=== PATIENT | female | born 1945 | race Caucasian/White ===

== ENCOUNTER 2017-10-12 10:59 | Emergency (ER) | payer MEDICARE ==
[~2017-10-12] VITALS: Ht 157.5 cm; Wt 94.0 kg
[~2017-10-12 10:59] MED LIST: ALBU6.7H INH; ALPR.25 PO; ASPI1TAB7 PO; CALC600T55 PO; CARD240C6 PO; CYMB30CA PO; FLUT50SP EACH NARE; HYZA100T6 PO; LEVO75TA3 PO; LIOT5 PO; LORA10TA PO; NEUR600T PO; PREM0.3T2 PO; PRIL40CA PO; RANI150T PO; TRAM50TA PO; TRAZ150T2 PO
[2017-10-12 11:10] VITALS: BP 229/97; PULSE 70; RESP 16; TEMP 97.8; O2SAT 98
[2017-10-12] MEDS ORDERED: GABA600T PO (11:44)
[2017-10-12] MEDS ORDERED: LIOT5TAB3 PO (11:44)
[2017-10-12] MEDS ORDERED: CYMB30CA PO (11:44)
[2017-10-12] MEDS ORDERED: IRBE300T13 PO (11:44)
[2017-10-12] MEDS ORDERED: OMEP40CA2 (11:45)
[2017-10-12] MEDS ORDERED: ALPR0.25 PO (11:45)
[2017-10-12] MEDS ORDERED: CLAR10CA3 PO (11:45)
[2017-10-12] MEDS ORDERED: PEMB1INJ IV-CENTRAL (11:45)
[2017-10-12] MEDS ORDERED: FURO20TA PO (11:45)
[2017-10-12] MEDS ORDERED: LEVO88TA2 PO (11:45)
[2017-10-12] MEDS ORDERED: AMLO5 PO (11:45)
[2017-10-12] MEDS ORDERED: TRAZ1TAB14 PO (11:45)
[2017-10-12] MEDS ORDERED: oxyCODONE/ACETAMINOPHEN 10 MG/325 MG TAB PO ONE (12:00)
--- NOTE | 2017-10-12 12:03 | PD ---
HPI Chief Complaint: Fall Time Seen by Provider: 11:34 Travel History International Travel<30 days: No Contact w/Intl Traveler<30days: No Traveled to known affect area: No History of Present Illness HPI The patient is a 71-year-old female who presents to the emergency department for headache, facial contusion, and chest congestion. The patient has a history of ovarian carcinoma, is currently being treated with Keytruda injection every 3 weeks, she is followed by her oncologist, Dr. Alejandra, in [place], [place]. The patient notes for the last 2-3 weeks she has had some chest congestion with a productive cough producing yellow sputum. She denies any fever or chest pain. The patient was sleeping on the couch earlier today when she rolled off the couch, landing on a tile floor. The patient states she suffered bruising to the right periorbital area as well as some nasal bridge swelling and bleeding from both nostrils. She does complain of a frontal headache, denies any associated neck pain. She denies any weakness of the upper or lower extremities. Symptoms are moderate. PFSH Past Medical History Hx Anticoagulant Therapy: No Asthma: Yes Anxiety: Yes Depression: Yes Cancer: Yes (OVARIAN) Cardiovascular Problems: Yes (htn on meds) Chemotherapy: Yes (11/11/15) Fibromyalgia: Yes GERD: Yes Hypertension: Yes Respiratory: Yes (ASTHMA) Immunizations Current: Yes Radiation Therapy: No Thyroid Disease: Yes (GRAVES) Influenza Vaccination: Yes ?: Not Past Surgical History Abdominal Surgery: Yes (OVARIAN CANCER WITH COLON RESECTION X 2) Appendectomy: Yes Cholecystectomy: Yes Hysterectomy: Yes Tonsillectomy: Yes Other Surgery: Yes (BILATERAL BREAST BIOPSIES X 3-BENIGN.) Social History Alcohol Use: No Tobacco Use: No (FORMER) Substance Use: No Allergies-Medications (Allergen,Severity, Reaction): Coded Allergies: acetaminophen (Unverified Allergy, Severe, VOMITING, 10/12/17) codeine (Unverified Allergy, Severe, UNKNOWN, 10/12/17) meperidine (Unverified Allergy, Severe, VOMITING, 10/12/17) oxycodone (Unverified Allergy, Severe, VOMITING, 10/12/17) penicillin G (Unverified Allergy, Severe, HIVES, 10/12/17) Reported Meds & Prescriptions Reported Meds & Active Scripts Active Reported Keytruda Inj (Pembrolizumab) 100 Mg/4 Ml (25 Mg/Ml) Inj 1 Injection IV-CENTRAL Q 3WEEKS Alprazolam 0.25 Mg Tab 0.25 Mg PO HS PRN Trazodone (Trazodone HCl) 150 Mg Tablet 150 Mg PO HS Omeprazole 40 Mg Cap 40 Mg BID Furosemide 20 Mg Tab 20 Mg PO DAILY Claritin (Loratadine) 10 Mg Cap 10 Mg PO DAILY Levothyroxine (Levothyroxine Sodium) 88 Mcg Tab 88 Mcg PO DAILY Norvasc (Amlodipine Besylate) 5 Mg Tab 5 Mg PO BID Cymbalta DR (Duloxetine HCl) 30 Mg Capdr 30 Mg PO BID Gabapentin 600 Mg Tab 600 Mg PO TID Irbesartan-Hydrochlorothiazide 300-12.5 Mg Tab 1 Tab PO DAILY Liothyronine (Liothyronine Sodium) 5 Mcg Tab 5 Mcg PO DAILY Review of Systems Except as stated in HPI: all other systems reviewed are Neg Eyes: No: Diploplia, Blurred Vision HENT: Positive: Headaches, Other (As noted in the history of present illness), No: Lightheadedness Cardiovascular: No: Chest Pain or Discomfort Respiratory: Positive: Cough Gastrointestinal: No: Nausea, Vomiting, Abdominal Pain Musculoskeletal: Positive: Pain (Pain secondary to chemotherapy diffusely, not acute), No: Weakness Neurologic: Positive: Headache, No: Change in Mentation, Paresthesia, Sensory Disturbance Physical Exam Narrative GENERAL: Awake, alert, pleasant 71-year-old female who appears her stated age and is in no acute respiratory distress. SKIN: Focused skin assessment warm/dry. HEAD: Right periorbital ecchymosis. Swelling of the nasal bridge. Hematoma over the right frontal forehead. EYES: Pupils equal and round. 3 mm bilateral and reactive. EOMs are intact. Patient is able to see fingers at a distance of 2 feet without difficulty. ENT: Nasal bridge swelling. Dry blood in both nostrils. Es pink and moist. NECK: Trachea midline. No JVD. No tenderness over the midline of the cervical vertebrae. Patient is able flex, extend, and rotate without difficulty. CARDIOVASCULAR: Regular rate and rhythm. No murmur appreciated. RESPIRATORY: No accessory muscle use. Clear to auscultation. Breath sounds equal bilaterally. No audible wheezes, rales, or rhonchi. MUSCULOSKELETAL: No obvious deformities. No clubbing. No cyanosis. No edema. NEUROLOGICAL: Awake and alert. No obvious cranial nerve deficits. Motor grossly within normal limits. Normal speech. Nonfocal. Oriented 4. Follows commands without difficulty. PSYCHIATRIC: Appropriate mood and affect; insight and judgment normal. Data Data Last Documented VS Vital Signs Date Time Temp Pulse Resp B/P (MAP) Pulse Ox O2 Delivery O2 Flow Rate FiO2 10/12/17 11:10 97.8 70 16 229/97 (141) [address] Facial Bones W/O Iv Cont (10/12/17 ) Ct Brain W/O Iv Contrast(Rout) (10/12/17 ) Chest, Single Ap (10/12/17 ) Oxycodone-Acetamin 10-325 Mg (Percocet 1 (10/12/17 12:00) MDM Medical Decision Making Medical Screen Exam Complete: Yes Emergency Medical Condition: Yes Medical Record Reviewed: Yes Interpretation(s) Last Impressions Maxillofacial CT 10/12/17 0000 Signed Impressions: Service Date/Time: September 11:57 - CONCLUSION: 1. Right nasal fracture. 2. Facial soft tissue swelling. Carter Barclay MD Head CT 10/12/17 0000 Signed Impressions: Service Date/Time: September 11:57 - CONCLUSION: 1. No acute intracranial abnormality. Carter Barclay MD Chest X-Ray 10/12/17 0000 Signed Impressions: Service Date/Time: September 11:46 - CONCLUSION: 1. Left basilar subsegmental atelectasis. 2. Tiny pleural effusions. Carter Barclay MD Differential Diagnosis Differential diagnosis includes closed head injury, intracranial hemorrhage, hematoma, contusion, orbital wall fracture, nasal fracture, epistaxis, pneumonia , bronchitis, pleural effusion. Narrative Course Chest x-ray was obtained. CT of the brain and facial bones was obtained. The patient states she has oxycodone at home for pain, therefore, was administered Percocet [address] of the brain reveals no intracranial hemorrhage. CT the facial bones reveals nasal fracture, soft tissue swelling, otherwise unremarkable. Chest x-ray reveals tiny pleural effusions bilaterally. I had a discussion with the patient, she has a history of tiny pleural effusions. Ice to the face and nose as needed. The patient has pain medications at home and states she takes Percocet, has no allergy to oxycodone or acetaminophen. Therefore, those allergies were removed. She will be provided a copy of her CT results at discharge. Return if symptoms worsen or progress. Diagnosis Primary Impression: Nasal fracture Qualified Codes: S02.2XXA - Fracture of nasal bones, initial encounter for closed fracture Additional Impressions: Closed head injury Qualified Codes: S09.90XA - Unspecified injury of head, initial encounter Bronchitis Patient Instructions: General Instructions Additional Instructions: Medications as directed. Please provide the patient a copy of her CT results and x-ray results at discharge. 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 Return if symptoms worsen or progress. Apply ice to the right eye and nose. Sinus precautions. Med/Other Pt SpecificInfo: Prescription(s) given Scripts Azithromycin (Zithromax Z-Alberto) 250 Mg Dspk 250 MG PO DIRECTED for Infection, #1 DSPK 0 Refills 500 MG (2 tabs) day 1, then 1 tab days 2-5. Prov: Alfredo Diehl MD 10/12/17 Disposition: DISCHARGE HOME Condition: Stable Alfredo Diehl MD Oct 12, 2017 12:03
--- NOTE | 2017-10-12 12:04 | RADRPT ---
EXAM DATE/TIME: 10/12/2017 11:46 [facility] COMPARISON: CHEST SINGLE AP, November 15, 2015, 14:10. INDICATIONS : Cough for 3 weeks; fall this morning. MEDICAL HISTORY : Hypertension. Asthma. Ovarian cancer. Graves disease. SURGICAL HISTORY : Appendectomy. Cholecystectomy. Hysterectomy. ENCOUNTER: Initial ACUITY: 3 weeks PAIN SCORE: 0/10 LOCATION: Bilateral chest FINDINGS: A single view of the chest demonstrates left basilar subsegmental atelectasis. Blunting of both costo phrenic angles. Heart normal in size. Left-sided port again seen. The cardiomediastinal contours are unremarkable. Osseous structures are intact. CONCLUSION: 1. Left basilar subsegmental atelectasis. 2. Tiny pleural effusions. Carter Barclay MD on October 12, 2017 at 12:02 Board Certified Radiologist. This report was verified electronically.
--- NOTE | 2017-10-12 12:13 | RADRPT ---
EXAM DATE/TIME: 10/12/2017 11:57 [facility] COMPARISON: No previous studies available for comparison. INDICATIONS : Trauma. Fall. Right forehead and nose pain. RADIATION DOSE: 59.46 CTDIvol (mGy) MEDICAL HISTORY : Gastroesophageal reflux disease. Hypertension. Graves disease. Ovarian cancer. SURGICAL HISTORY : Appendectomy. Colon resection.Cholecystectomy.Hysterectomy. ENCOUNTER: Initial ACUITY: 1 day PAIN SCALE: 8/10 LOCATION: Right cranial TECHNIQUE: Multiple contiguous axial images were obtained of the head. Using automated exposure control and adj ustment of the mA and/or kV according to patient size, radiation dose was kept as low as reasonably a chievable to obtain optimal diagnostic quality images. DICOM format image data is available electro nically for review and comparison. FINDINGS: CEREBRUM: Cerebral atrophy. The ventricles are normal for age. No evidence of midline shift, mass lesion, hemo rrhage or acute infarction. No extra-axial fluid collections are seen. POSTERIOR FOSSA: The cerebellum and brainstem are intact. The 4th ventricle is midline. The cerebellopontine angle i s unremarkable. EXTRACRANIAL: The visualized portion of the orbits is intact. Right forehead contusion. SKULL: The calvaria is intact. No evidence of skull fracture. CONCLUSION: 1. No acute intracranial abnormality. Carter Barclay MD on October 12, 2017 at 12:11 Board Certified Radiologist. This report was verified electronically.
--- NOTE | 2017-10-12 12:17 | RADRPT ---
EXAM DATE/TIME: 10/12/2017 11:57 [facility] COMPARISON: No previous studies available for comparison. INDICATIONS : Trauma. Fall. Right forehead and nose pain. RADIATION DOSE: 34.84 CTDIvol (mGy) MEDICAL HISTORY : Gastroesophageal reflux disease. Hypertension. Graves disease. Ovarian cancer. SURGICAL HISTORY : Appendectomy. Colon resection.Cholecystectomy.Hysterectomy. ENCOUNTER: Initial ACUITY: 1 day PAIN SCORE: 8/10 LOCATION: facial TECHNIQUE: Volumetric scanning of the facial bones was performed. Using automated exposure control and adjustme nt of the mA and/or kV according to patient size, radiation dose was kept as low as reasonably achiev able to obtain optimal diagnostic quality images. DICOM format image data is available electronicall y for review and comparison. FINDINGS: ORBITS: The orbital and infraorbital osseous structures are intact. The retroconal structures have a normal configuration. No radiopaque foreign bodies are seen. NASAL BONE: The nasal bone and maxillary spine are intact ZYGOMATIC ARCHES: Symmetric without evidence of fracture. SINUSES: Minimal scattered sinus disease probably within the maxillary sinuses. No air-fluid levels seen. NASAL CAVITY: Right nasal fracture. The lacrimal ducts are intact. SOFT TISSUES: No radiopaque foreign bodies seen. Right-sided facial soft-tissue swelling is seen. INTRACRANIAL: No intracranial air seen. CRIBIFORM PLATE: Grossly intact. CONCLUSION: 1. Right nasal fracture. 2. Facial soft tissue swelling. Carter Barclay MD on October 12, 2017 at 12:14 Board Certified Radiologist. This report was verified electronically.
[2017-10-12] MEDS ORDERED: ZITHTAB PO (13:05)
== END 2017-10-12 13:42 | disposition home or self-care (01) ==
LOC: PHEFT 10:59
DX: S02.2XXA Fracture of nasal bones, initial encounter for closed fracture (principal); S09.90XA Unspecified injury of head, initial encounter; J40 Bronchitis, not specified as acute or chronic; J45.909 Unspecified asthma, uncomplicated; R05 Cough; I10 Essential (primary) hypertension; W08.XXXA Fall from other furniture, initial encounter; Y93.84 Activity, sleeping; Y92.008 Other place in unspecified non-institutional (private) residence as the place of occurrence of the external cause; Z85.43 Personal history of malignant neoplasm of ovary
CPT/HCPCS: 70450; 70486; 71045; 99285

== ENCOUNTER 2018-04-11 00:10 | Observation (INO) ==
--- NOTE | 2018-04-11 01:04 | ED ---
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 She had her blood drawn earlier today and was called at home to inform her that her hemoglobin was 6.8 and that she should come to the emergency department immediately for transfusion. She reports that she has been feeling very fatigued and tires easily for the past several weeks. She denies any sort of bleeding. No bruising on her body. No rash. She denies hematemesis, hematochezia, hemoptysis and bleeding from enterocutaneous fistula. She had pelvic cancer surgery March 19 of this year. 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 while she is being treated with TPN through a right upper extremity PICC line. She denies exertional chest pain, exertional dyspnea, and syncope. She is not currently receiving cytotoxic chemotherapy. She was previously receiving Keytruda but this is been discontinued as well. She has not received any radiation therapy. Related Data Home Medications Medication Instructions Recorded Confirmed alprazolam 0.25 mg PO DAILY 04/11/18 04/11/18 amlodipine [Norvasc] 5 mg PO BID 04/11/18 04/11/18 aspirin [Aspir-81] 81 mg PO DAILY 04/11/18 04/11/18 cholecalciferol (vitamin D3) 5,000 unit PO DAILY 04/11/18 04/11/18 [Vitamin D3] duloxetine [Cymbalta] 30 mg PO BID 04/11/18 04/11/18 furosemide [Lasix] 20 mg PO DAILY 04/11/18 04/11/18 gabapentin 600 mg PO TID 04/11/18 04/11/18 hydralazine 100 mg PO DAILY 04/11/18 04/11/18 irbesartan-hydrochlorothiazide 1 tab PO DAILY 04/11/18 04/11/18 levothyroxine 75 mcg PO DAILY 04/11/18 04/11/18 liothyronine 5 mcg PO DAILY 04/11/18 04/11/18 loratadine 10 mg PO DAILY 04/11/18 04/11/18 omeprazole 40 mg PO DAILY 04/11/18 04/11/18 trazodone 150 mg PO DAILY 04/11/18 04/11/18 Allergies Allergy/AdvReac Type Severity Reaction Status Date / Time codeine Allergy Severe UNKNOWN Unverified 10/12/17 11:14 meperidine Allergy Severe VOMITING Unverified 10/12/17 11:14 penicillin G Allergy Severe HIVES Unverified 10/12/17 11:14 Review of Systems ROS: all other systems reviewed are negative [facility] Medical History Medical History Enterocutaneous fistula (Acute) Hx of essential hypertension (Acute) Hx of gastroesophageal reflux (GERD) (Acute) Hx of ovarian cancer (Acute) Hx of thyroid disease (Acute) Surgical History Surgical History Hx of appendectomy (Acute) Hx of cholecystectomy (Acute) Hx of colectomy (Acute) Hx of tonsillectomy (Acute) Hx of total hysterectomy with removal of both tubes and ovaries (Acute) Social History Social History Substance History: No History of Abuse Second Hand Smoke Exposure: No Smoking Status: Never smoker How Often Do You Have a Drink Containing Alcohol: Never Recent Travel in [place] within the Last 8 Weeks: No Recent Out of Country Travel within the Last 8 Weeks: No Immunization History Tetanus Immunization: Unsure Hx Influenza Vaccine This Season: Yes Exam Narrative Exam Narrative: GENERAL: 72-year-old woman who appears chronically ill lying on exam stretcher in no apparent distress. When she is not talking it appears that she nods off to sleep. Her is seated in a chair next to the bed. SKIN: Focused skin assessment warm/dry. Puffy edema of bilateral upper extremities left arm worse than right. 2+ pitting edema bilateral lower extremities. HEAD: Atraumatic. Normocephalic. EYES: Pupils equal and round. No scleral icterus. No injection or drainage. ENT: No nasal bleeding or discharge. Mucous membranes pink and moist. NECK: Trachea midline. No JVD. CARDIOVASCULAR: Regular rate and rhythm. No murmur appreciated. RESPIRATORY: No accessory muscle use. Clear to auscultation. Breath sounds equal bilaterally. GASTROINTESTINAL: Abdomen soft, mildly tender around surgical incisions. Enteric cutaneous fistula and midline chylous fluid, surgical incision is clean dry and intact and healing well, nondistended. Hepatic and splenic margins not palpable. MUSCULOSKELETAL: No obvious deformities. No clubbing. No cyanosis. No edema. NEUROLOGICAL: Awake and alert. No obvious cranial nerve deficits. Motor grossly within normal limits. Normal speech. PSYCHIATRIC: Appropriate mood and affect; insight and judgment normal. Course Consultations Consultation #1: Spoke with Dr. Malone regarding patient's anemia and need for transfusion. She will admit patient for care to [facility]. 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 There is no evidence of cardiac ischemia or heart failure. She has complaint of fatigue, which may be related to her chronic health conditions but is likely contributed to by anemia. Will recheck hemoglobin and order anemia labs. Medical Screen Exam Complete: Yes Emergency Medical Condition: Yes Medical Records Medical records reviewed: Yes I reviewed the patient's medical records. Lab Data Lab results reviewed: Yes I reviewed the patient's lab results. Lab results narrative: Normocytic anemia. Result diagrams: 04/11/18 01:10 04/11/18 01:10 Lab Results 04/11/18 04/11/18 04/11/18 Range/Units 01:10 01:10 02:03 CBC w Diff Auto diff final WBC 6.2 (4.0-11.0) th/mm3 RBC 2.48 L (4.00-5.30) mil/mm3 Hgb 7.6 L (11.6-15.3) gm/dL Hct 22.5 L (35.0-46.0) % MCV 90.5 (80.0-100.0) fL MCH 30.5 (27.0-34.0) pg MCHC 33.7 (32.0-36.0) % RDW 15.2 (11.6-17.2) % Plt Count 419 (150-450) th/mm3 MPV 7.5 (7.0-11.0) fL Neut % (Auto) 80.9 H (16.0-70.0) % Lymph % (Auto) 4.2 L (9.0-44.0) % [place] % (Auto) 10.1 H (0.0-8.0) % Eos % (Auto) 4.4 H (0.0-4.0) % Baso % (Auto) 0.4 (0.0-2.0) % Neut # (Auto) 5.0 (1.8-7.7) th/mm3 Lymph # (Auto) 0.3 L (1.0-4.8) th/mm3 [place] # (Auto) 0.6 (0.0-0.9) th/mm3 Eos # (Auto) 0.3 (0.0-0.4) th/mm3 Baso # (Auto) 0.0 (0.0-0.2) th/mm3 WBC Differential . Differential Comment . Sodium 137 (136-145) meq/L Potassium 4.3 (3.5-5.1) meq/L Chloride 103 (98-107) meq/L Carbon Dioxide 27.2 (21.0-32.0) meq/L Anion Gap 7 (5-15) meq/L BUN 20 H (7-18) mg/dL Creatinine 0.97 (0.50-1.00) mg/dL Estimated GFR 56 L (>89) mL/min Random Glucose 103 (74-106) mg/dL Calcium 8.7 (8.5-10.1) mg/dL Total Bilirubin 0.2 (0.2-1.0) mg/dL AST 17 (15-37) U/L ALT 25 (10-53) U/L Alkaline Phosphatase 225 H (45-117) U/L Total Protein 5.6 L (6.4-8.2) g/dL Albumin 1.9 L (3.4-5.0) g/dL MTS Gel Crossmatch See Detail Discharge Plan Discharge Disposition Patient Disposition: 30 Still Patient Discharge Condition Condition: Fair Discharge Details Diagnosis: Macrocytic anemia Physicians Team ED Provider: Issa Dave Primary Care Provider: NON STAFF,PROVIDER Rxs /Orders / Referrals /Forms Prescriptions: No Action gabapentin 600 mg Tablet 600 mg PO TID RF: 0 amlodipine [Norvasc] 5 mg Tablet 5 mg PO BID RF: 0 omeprazole 40 mg Capsule,Delayed Release(Dr/Ec) 40 mg PO DAILY RF: 0 liothyronine 5 mcg Tablet 5 mcg PO DAILY RF: 0 aspirin [Aspir-81] 81 mg Tablet,Delayed Release (Dr/Ec) 81 mg PO DAILY RF: 0 levothyroxine 75 mcg Tablet 75 mcg PO DAILY RF: 0 alprazolam 0.25 mg Tablet 0.25 mg PO DAILY RF: 0 hydralazine 100 mg Tablet 100 mg PO DAILY RF: 0 trazodone 150 mg Tablet 150 mg PO DAILY RF: 0 irbesartan-hydrochlorothiazide 300-12.5 mg Tablet 1 tab PO DAILY RF: 0 furosemide [Lasix] 20 mg Tablet 20 mg PO DAILY RF: 0 duloxetine [Cymbalta] 30 mg Capsule,Delayed Release(Dr/Ec) 30 mg PO BID RF: 0 cholecalciferol (vitamin D3) [Vitamin D3] 5,000 unit Tablet 5,000 unit PO DAILY RF: 0 loratadine 10 mg Capsule 10 mg PO DAILY RF: 0 Status ED Status: In Room
[2018-04-11 01:24] LABS: Baso % (Auto) 0.4 % (0.0-2.0); Eos # (Auto) 0.3 th/mm3 (0.0-0.4); Eos % (Auto) 4.4 % (0.0-4.0); Hematocrit 22.5 % (35.0-46.0); Hemoglobin 7.6 gm/dL (11.6-15.3); Lymph # (Auto) 0.3 th/mm3 (1.0-4.8); Lymph % (Auto) 4.2 % (9.0-44.0); Mean Corpuscular HGB Conc 33.7 % (32.0-36.0); Mean Corpuscular Hemoglobin 30.5 pg (27.0-34.0); Mean Corpuscular Volume 90.5 fL (80.0-100.0); Mean Platelet Volume 7.5 fL (7.0-11.0); Mono # (Auto) 0.6 th/mm3 (0.0-0.9); Mono % (Auto) 10.1 % (0.0-8.0); Neut % (Auto) 80.9 % (16.0-70.0); Platelet Count 419 th/mm3 (150-450); Red Blood Count 2.48 mil/mm3 (4.00-5.30); Red Cell Distribution Width 15.2 % (11.6-17.2); White Blood Count 6.2 th/mm3 (4.0-11.0)
[2018-04-11 01:31] LABS: Chloride 103 meq/L (98-107); Potassium 4.3 meq/L (3.5-5.1); Sodium 137 meq/L (136-145)
[2018-04-11 01:34] LABS: Calcium 8.7 mg/dL (8.5-10.1)
[2018-04-11 01:35] LABS: Albumin 1.9 g/dL (3.4-5.0); Anion Gap 7 meq/L (5-15); Blood Urea Nitrogen 20 mg/dL (7-18); Carbon Dioxide 27.2 meq/L (21.0-32.0); Glucose,Random 103 mg/dL (74-106)
[2018-04-11 01:38] LABS: Alanine Aminotransferase 25 U/L (10-53); Aspartate Aminotransferase 17 U/L (15-37); Glomerular Filtration Rate 56 mL/min (>89)
[2018-04-11 01:40] LABS: Total Protein 5.6 g/dL (6.4-8.2)
[2018-04-11 01:41] LABS: Alkaline Phosphatase 225 U/L (45-117)
[2018-04-11] MEDS ORDERED: Acetaminophen 325 MG Tablet PO PRN (02:20)
[2018-04-11] MEDS ORDERED: Bisacodyl 10 MG Supp RECTAL PRN (02:20)
[2018-04-11 02:43] LABS: Reticulocyte Percent 3.9 % (0.4-3.0)
[2018-04-11 02:54] LABS: % Iron Saturation 11.9 % (20-50)
[2018-04-11 03:19] LABS: Folate 10.6 ng/mL (3.1-17.5)
[2018-04-11] MEDS ORDERED: Levothyroxine 75 MCG Tablet PO SCH (07:00)
[2018-04-11] MEDS ORDERED: Gabapentin 300 MG Capsule PO SCH ×2 (09:00→21:00)
[2018-04-11] MEDS ORDERED: ALPRAZolam 0.25 MG Tablet PO SCH (09:00)
[2018-04-11] MEDS ORDERED: hydroCHLOROthiazide 25 MG Tablet PO SCH (09:00)
[2018-04-11] MEDS ORDERED: amLODIPine 5 MG Tablet PO SCH (09:00)
[2018-04-11] MEDS ORDERED: Furosemide 20 MG Tablet PO SCH (09:00)
[2018-04-11] MEDS ORDERED: oxyCODONE 10 MG Controlled Release Tablet PO SCH (09:00)
[2018-04-11] MEDS ORDERED: traZODone 100 MG Tablet PO SCH (09:00)
[2018-04-11] MEDS ORDERED: hydrALAZINE 50 MG Tablet PO SCH (09:00)
[2018-04-11] MEDS ORDERED: Senna/Docusate Sodium 8.6/50 MG Tablet PO SCH (09:00)
[2018-04-11] MEDS ORDERED: Liothyronine 5 MCG Tablet PO SCH (09:00)
[2018-04-11 09:32] VITALS: RESP 16
[2018-04-11 11:27] LABS: Hematocrit 26.9 % (35.0-46.0)
[2018-04-11 13:12] VITALS: BP 120/67; PULSE 86; TEMP 97.5; O2SAT 94
--- NOTE | 2018-04-11 14:21 | P.HP ---
History of Present Illness Primary Care Physician: PROVIDER NON STAFF Chief Complaint: Patient told to come here by home health care History of Present Illness: 72-year-old female with rather complicated recent medical history of ovarian cancer status post surgery on March 19, 2018 who developed a antral fistula. Patient is on TPN at this time in order to give significant rest of the bowel to see if the fistula will heal on its own. The patient just got home from the hospital on 04/03/18. Patient does have home health, and around on a regular basis. They did recent laboratory studies. The patient was contacted last evening by the nurse from the home health care agency who told her that she needs to go to the hospital for transfusion. Patient did as told and came to the hospital. Patient was evaluated by emergency room physician in was admitted for transfusion. Patient was told that her hemoglobin 6.4 by the home healthcare agency, when patient came to the hospital laboratory studies indicate her hemoglobin 7.6. Patient denies any weakness, shortness of breath, dyspnea, dark colored stools. 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 - Diagnosis (1) Anemia Review of Systems All other systems reviewed negative except as stated in HPI PMFSH - History History Provided By: Patient, Family Member - Medical History Medical History: Medical History (Last Updated 04/11/18 @ 13:18 by AVTAR Trinh) Enterocutaneous fistula Fibromyalgia Hx of essential hypertension Hx of gastroesophageal reflux (GERD) Hx of ovarian cancer Hx of thyroid disease - Surgical History Surgical History: Surgical History (Last Updated 04/11/18 @ 13:19 by AVTAR Trinh) Hx of appendectomy Hx of cholecystectomy Hx of colectomy Hx of tonsillectomy Hx of total hysterectomy with removal of both tubes and ovaries Status post breast lumpectomy - Family History Family History: Family History (Last Updated 04/11/18 @ 13:19 by AVTAR Trinh) Father History of heart attack - Tobacco History Second Hand Smoke Exposure: No Smoking Status: Never smoker - Alcohol History How Often Do You Have a Drink Containing Alcohol: Never - Substance Use History Substance History: No History of Abuse - Travel History Recent Travel in the [place] Within the Last 8 Weeks: No Recent Travel Out of the Country Within the Last 8 Weeks: No - Immunization History Tetanus Immunization: Unable to Assess Hx Influenza Vaccine This Season: Yes Medications and Allergies Active Medications: Active Medications Acetaminophen (Tylenol) 650 mg PO Q4H PRN PRN Reason: Temp > 100.4 Al Hydroxide/Mg Hydroxide (Milk Of Magnesia Liq) 30 ml PO Q12H PRN PRN Reason: Mild Constipation Alprazolam (Xanax) 0.25 mg PO DAILY [facility] Last Admin: 04/11/18 08:46 Dose: Not Given Amlodipine Besylate (Norvasc) 5 mg PO BID [facility] Last Admin: 04/11/18 08:45 Dose: 5 mg Bisacodyl (Dulcolax Supp) 10 mg RECTAL DAILY PRN PRN Reason: SEVERE CONSITIPATION Duloxetine HCl (Cymbalta) 30 mg PO BID [facility] Last Admin: 04/11/18 10:10 Dose: 30 mg Furosemide (Lasix) 20 mg PO DAILY [facility] Last Admin: 04/11/18 08:45 Dose: 20 mg Gabapentin (Neurontin) 600 mg PO BID [facility] Hydralazine HCl (Apresoline) 100 mg PO DAILY [facility] Last Admin: 04/11/18 08:43 Dose: Not Given Hydrochlorothiazide (Hydrodiuril) 12.5 mg PO DAILY [facility] Last Admin: 04/11/18 08:45 Dose: 12.5 mg Hydromorphone HCl (Dilaudid) 2 mg PO Q6H PRN PRN Reason: pain Last Admin: 04/11/18 07:25 Dose: 2 mg Lactulose (Lactulose Liq) 30 ml PO DAILY PRN PRN Reason: SEVERE CONSITIPATION Levothyroxine Sodium (Synthroid) 75 mcg PO DAILY@0700 [facility] Last Admin: 04/11/18 06:48 Dose: 75 mcg Liothyronine Sodium (Cytomel) 5 mcg PO DAILY [facility] Last Admin: 04/11/18 10:10 Dose: 5 mcg Losartan Potassium (Cozaar) 100 mg PO DAILY [facility] Last Admin: 04/11/18 08:45 Dose: 100 mg Ondansetron HCl (Zofran Inj) 4 mg IV.PUSH Q6H PRN PRN Reason: NAUSEA OR VOMITING Oxycodone HCl (Oxycontin Cr) 10 mg PO BID [facility] Last Admin: 04/11/18 08:44 Dose: 10 mg Pantoprazole Sodium (Protonix) 40 mg PO DAILY [facility] Last Admin: 04/11/18 08:46 Dose: 40 mg Senna/Docusate Sodium (Nela-Colace) 1 tab PO BID [facility] Last Admin: 04/11/18 08:46 Dose: Not Given Sennosides (Senokot) 17.2 mg PO Q12H PRN PRN Reason: Moderate Constipation Trazodone HCl (Desyrel) 150 mg PO DAILY [facility] Last Admin: 04/11/18 08:40 Dose: Not Given Allergies Allergy/AdvReac Type Severity Reaction Status Date / Time codeine Allergy Severe UNKNOWN Verified 04/11/18 03:26 meperidine Allergy Severe VOMITING Verified 04/11/18 03:26 penicillin G Allergy Severe HIVES Verified 04/11/18 03:26 Home Medications Medication Instructions Recorded Confirmed Type alprazolam 0.25 mg PO 04/11/18 04/11/18 History amlodipine [Norvasc] 5 mg PO BID 04/11/18 04/11/18 History aspirin [Aspir-81] 81 mg PO DAILY 04/11/18 04/11/18 History cholecalciferol (vitamin D3) 5,000 unit PO DAILY 04/11/18 04/11/18 History [Vitamin D3] duloxetine [Cymbalta] 30 mg PO BID 04/11/18 04/11/18 History furosemide [Lasix] 20 mg PO DAILY 04/11/18 04/11/18 History gabapentin 600 mg PO TID 04/11/18 04/11/18 History hydralazine 100 mg PO HS 04/11/18 04/11/18 History hydromorphone 2 mg PO Q3H PRN 04/11/18 04/11/18 History irbesartan-hydrochlorothiazide 1 tab PO DAILY 04/11/18 04/11/18 History levothyroxine 75 mcg PO DAILY 04/11/18 04/11/18 History liothyronine 5 mcg PO DAILY 04/11/18 04/11/18 History loratadine 10 mg PO DAILY 04/11/18 04/11/18 History omeprazole 40 mg PO DAILY 04/11/18 04/11/18 History oxycodone [OxyContin] PO BID 04/11/18 History trazodone 150 mg PO HS 04/11/18 04/11/18 History Exam Vital signs: Vital Signs 04/11/18 00:12 04/11/18 02:52 04/11/18 04:00 Temperature 98.5 F 98.0 F Pulse Rate 89 90 92 H Respiratory Rate 18 18 18 Blood Pressure 133/68 164/63 H 130/69 Pulse Oximetry 96 97 93 L 04/11/18 05:20 04/11/18 05:35 04/11/18 08:00 Temperature 98.0 F 98.2 F 97.4 F L Pulse Rate 89 96 H 87 Respiratory Rate 18 20 16 Blood Pressure 130/69 132/61 121/69 Pulse Oximetry 92 L 95 04/11/18 12:00 Temperature 97.5 F L Pulse Rate 86 Respiratory Rate 16 Blood Pressure 120/67 Pulse Oximetry 94 L Intake & Output 04/10/18 04/11/18 04/11/18 18:59 06:59 18:59 Intake Total 0 / 0 0 / 0 Output Total 200 / 200 250 / 250 Balance -200 / -200 -250 / -250 Weight 100.5 kg Intake: Intake (Blood Product) Amt 0 / 0 0 / 0 Rbc As-3 Leukoreduced Unit 0 / 0 0 / 0 [id number] Output: Urine 200 / 200 Wound Drainage 250 / 250 Medial Abdomen 250 / 250 Other: # Voids 1 Date of Last Bowel Movement 04/10/18 04/10/18 Weight On Admission 100.5 kg Narrative: GENERAL: Well-developed, well-nourished, in no acute distress. alert and orientated HEENT: Head is normocephalic without any lesions or masses noted. Facial features are symmetric. Eyes: Pupils equal round reactive to light. Extraocular muscles are intact. Conjunctivae were clear. Oropharyngeal: Pharynx without any erythema edema. Tongue is midline without deviation. Buccal mucosa is moist without any masses or lesions NECK: Supple without any masses. Trachea midline no deviation. No JVD, no bruits are appreciated CARDIAC: Regular rhythm, regular rate. S1/S2 are heard. No murmurs gallops or rubs. LUNGS: Clear to auscultation bilaterally. No wheeze, rhonchi or rales. No use of accessory muscles on inspiration or expiration. ABDOMEN: Soft, nontender. Nondistended. Bowel sounds heard in all 4 quadrants. No organomegaly or masses. Negative rebound, negative guarding EXTREMITIES: No edema, pulses are equal bilaterally. No cyanosis or clubbing NEUROLOGY: Mood and affect appear appropriate. Cranial nerves II through XII grossly intact. Muscle strength 5/5 in upper and lower extremities bilaterally. Deep tendon reflexes are 2+ in upper and lower extremities bilaterally. Results - Labs CBC & Chem 7: 04/11/18 11:20 04/11/18 01:10 Labs: Laboratory Results - last 24 hr 04/11/18 04/11/18 04/11/18 01:10 01:10 01:10 CBC w Diff Auto diff final WBC 6.2 RBC 2.48 L Hgb 7.6 L Hct 22.5 L MCV 90.5 MCH 30.5 MCHC 33.7 RDW 15.2 Plt Count 419 MPV 7.5 Neut % (Auto) 80.9 H Lymph % (Auto) 4.2 L Nye % (Auto) 10.1 H Eos % (Auto) 4.4 H Baso % (Auto) 0.4 Neut # (Auto) 5.0 Lymph # (Auto) 0.3 L Nye # (Auto) 0.6 Eos # (Auto) 0.3 Baso # (Auto) 0.0 WBC Differential . Differential Comment . Retic Count 3.9 H Absolute Retic 92.7 Haptoglobin 375 H Sodium Potassium Chloride Carbon Dioxide Anion Gap BUN Creatinine Estimated GFR Random Glucose Calcium Iron 20 L TIBC 168 L % Saturation 11.9 L Ferritin 106 Total Bilirubin AST ALT Alkaline Phosphatase Lactate Dehydrogenase 160 Total Protein Albumin Vitamin B12 918 Folate 10.6 Blood Type Antibody Screen MTS Gel Crossmatch Bld Prod Order Comment 04/11/18 04/11/18 04/11/18 01:10 01:10 02:03 CBC w Diff WBC RBC Hgb Hct MCV MCH MCHC RDW Plt Count MPV Neut % (Auto) Lymph % (Auto) Nye % (Auto) Eos % (Auto) Baso % (Auto) Neut # (Auto) Lymph # (Auto) Nye # (Auto) Eos # (Auto) Baso # (Auto) WBC Differential Differential Comment Retic Count Absolute Retic Haptoglobin Sodium 137 Potassium 4.3 Chloride 103 Carbon Dioxide 27.2 Anion Gap 7 BUN 20 H Creatinine 0.97 Estimated GFR 56 L Random Glucose 103 Calcium 8.7 Iron TIBC % Saturation Ferritin Total Bilirubin 0.2 AST 17 ALT 25 Alkaline Phosphatase 225 H Lactate Dehydrogenase Total Protein 5.6 L Albumin 1.9 L Vitamin B12 Folate Blood Type O Negative Antibody Screen Negative MTS Gel Crossmatch See Detail Bld Prod Order Comment 04/11/18 11:20 CBC w Diff WBC RBC Hgb 9.0 L Hct 26.9 L MCV MCH MCHC RDW Plt Count MPV Neut % (Auto) Lymph % (Auto) Nye % (Auto) Eos % (Auto) Baso % (Auto) Neut # (Auto) Lymph # (Auto) Nye # (Auto) Eos # (Auto) Baso # (Auto) WBC Differential Differential Comment Retic Count Absolute Retic Haptoglobin Sodium Potassium Chloride Carbon Dioxide Anion Gap BUN Creatinine Estimated GFR Random Glucose Calcium Iron TIBC % Saturation Ferritin Total Bilirubin AST ALT Alkaline Phosphatase Lactate Dehydrogenase Total Protein Albumin Vitamin B12 Folate Blood Type Antibody Screen MTS Gel Crossmatch Bld Prod Order Comment Caprini VTE Risk Assessment Caprini VTE Risk Assessment: No/Low Risk (score <= 1) Caprini Risk Assessment Model: Point Value = 1 Point Value = 2 Point Value = 3 Point Value = 5 Age 41-60 Minor surgery BMI > 25 kg/m2 Swollen legs Varicose veins or History of unexplained or recurrent spontaneous Oral contraceptives or hormone replacement Sepsis (< 1 month) Serious lung disease, including pneumonia (< 1 month) Abnormal pulmonary function Acute myocardial infarction Congestive heart failure (< 1 month) History of inflammatory bowel disease Medical patient at bed rest Age 61-74 Arthroscopic surgery Major open surgery (> 45 min) Laparoscopic surgery (> 45 min) Malignancy Confined to bed (> 72 hours) Immobilizing plaster cast Central venous access Age >= 75 History of VTE Family history of VTE Factor V Leiden Prothrombin [id number] Lupus anticoagulant Anticardiolipin antibodies Elevated serum homocysteine Heparin-induced thrombocytopenia Other congenital or acquired thrombophilia Stroke (< 1 month) Elective arthroplasty Hip, pelvis, or leg fracture Acute spinal cord injury (< 1 month) Prophylaxis Regimen: Total Risk Factor Score Risk Level Prophylaxis Regimen 0-1 Low Early ambulation 2 Moderate Order ONE of the following: *Sequential Compression Device (SCD) *Heparin 5000 units SQ BID 3-4 Higher Order ONE of the following medications: *Heparin 5000 units SQ TID *Enoxaparin/Lovenox 40 mg SQ daily (WT < 150 kg, CrCl > 30 mL/min) *Enoxaparin/Lovenox 30 mg SQ daily (WT < 150 kg, CrCl > 10-29 mL/min) *Enoxaparin/Lovenox 30 mg SQ BID (WT < 150 kg, CrCl > 30 mL/min) AND/OR *Sequential Compression Device (SCD) 5 or more Highest Order ONE of the following medications: *Heparin 5000 units SQ TID (Preferred with Epidurals) *Enoxaparin/Lovenox 40 mg SQ daily (WT < 150 kg, CrCl > 30 mL/min) *Enoxaparin/Lovenox 30 mg SQ daily (WT < 150 kg, CrCl > 10-29 mL/min) *Enoxaparin/Lovenox 30 mg SQ BID (WT < 150 kg, CrCl > 30 mL/min) AND *Sequential Compression Device (SCD) Assessment and Plan - Assessment (1) Anemia Code(s): D64.9 - Anemia, unspecified Status: Acute - Plan Anemia -Patient's recent admission upon discharge [facility] [place] -Laboratory studies do not indicate any significant deficiency that can be corrected -Patient status post 1 unit of packed red blood cell transfusion with hemoglobin now 9.0 -Discussed with patient's MVA REACTOR OPERATOR oncologist who indicated that the patient's hemoglobin is better than her baseline and from their perspective patient is stable to be discharged and follow-up in the office Enterocutaneous fistula -Continue TPN -Continue outpatient follow-up Hypertension -Home medication continue Fibromyalgia -Continue home medication DVT prevention -Avoid chemical prophylaxis secondary to anemia Discharge Planning: Discharge home in stable condition Activity: Ad aleida. Diet: Healthy heart diet Medication per medication reconciliation Follow-up with primary medical doctor in 1 week
== END 2018-04-11 18:15 | disposition home or self-care (01) ==
LOC: PHEDA 00:10 → PHED 00:10 → PH3 03:33
PROVIDERS: ADMIT Hospitalist; ATTEND Hospitalist
DX: D64.9 Anemia, unspecified; C56.9 Malignant neoplasm of unspecified ovary; L98.8 Other specified disorders of the skin and subcutaneous tissue; K21.9 Gastro-esophageal reflux disease without esophagitis; I10 Essential (primary) hypertension; K63.2 Fistula of intestine; Z90.49 Acquired absence of other specified parts of digestive tract; M79.7 Fibromyalgia; Z90.710 Acquired absence of both cervix and uterus; Z88.5 Allergy status to narcotic agent; Z82.49 Family history of ischemic heart disease and other diseases of the circulatory system